=== PATIENT | male | born 1950 | race Caucasian/White ===

== ENCOUNTER 2016-05-15 15:57 | Inpatient (IN) | payer MEDICARE, OTHER ==
--- NOTE | ~2016-05-15 | TH ---
Unit #: [id number] #: [id number] Patient: DYANA PAYNE JR [id number] [address] [place], [place] [address] [id number] I MR#: [id number] NAME: DYANA PAYNE JR : 1950 SEX: M STUDY DATE/TIME: UNIT: C3A U ROOM: [facility] STUDY DESCRIPTION: Nuclear Study Attending Physician: Mateusz Kaur M.D. Primary Care Physician: Rashaun Lawler M.D. CARDIOLOGY REPORT EXAM Lexiscan Cardiolite Stress Test - Nuclear Portion DESCRIPTION Using technetium 99m labeled Cardiolite, rest and stress SPECT images were obtained. Multiple SPECT images were obtained in various views including horizontal and vertical long axis and short axis views of the left ventricle. Images were obtained by gated SPECT method. The patient was administered 11.3 mCi of Cardiolite at rest. The patient was administered 33.9 mCi of Cardiolite after Lexiscan infusion was completed. On the stress images, there is a medium sized area of severe decreased isotope activity inferiorly. The rest images also show a medium sized area of severe decreased isotope activity inferiorly. Comparing rest and stress images, there is suspicion for medium to large inferior wall myocardial infarction with no stress-induced ischemia. The left ventricular ejection fraction is calculated to be 17%. There is severe global hypokinesis seen. The left ventricular cavity is severely dilated, both at rest and post stress. CONCLUSION 1. Suspicion for medium to large inferior wall myocardial infarction. 2. No obvious stress-induced ischemia noted. 3. The left ventricular ejection fraction is calculated to be 17%. 4. There is severe global hypokinesis seen. 5. The left ventricular cavity size is severely dilated, both at rest and post stress. 6. Suspicion for severe dilated ischemic cardiomyopathy with large inferior wall myocardial infarction and no obvious stress-induced ischemia. Dictated by.Aiden Yip TD: 05/17/2016 12:45 JOB #: [id number] Unit #: [id number] #: [id number] Patient: DYANA PAYNE JR CARDIOLOGY REPORT Page 1 of 1 X Annabel Goddard MD <ELECTRONICALLY SIGNED> 08/28/16 [facility] CARDIOLOGY REPORT
--- NOTE | ~2016-05-15 | OR ---
Unit #: [id number] #: [id number] Patient: DYANA PAYNE JR [id number] [address] [id number] [facility]. [place], [place] [address] [id number] Adams MR#: [id number] NAME: DYANA PAYNE JR ROOM: 303 Date of Procedure: 05/21/2016 Admission Date: 05/17/2016 Surgeon: Sukumar Musa M.D. : 1950 Attending Physician: Mateusz Kaur M.D. Primary Care Physician: Rashaun Lawler M.D. OPERATIVE REPORT PROCEDURES PERFORMED 1. Right basilic vein transposition. 2. Placement of tunneled dialysis catheter. INDICATIONS FOR PROCEDURE This is a 65-year-old gentleman with end-stage renal disease, and we were requested by his sales support advisor to place a tunneled dialysis catheter so he can receive immediate dialysis access, as well as placement of a fistula for long-term dialysis access. The patient had preoperative vein mapping that demonstrated that he had adequate right basilic vein for use. He has a left-sided pacemaker already placed. I talked to the patient and his family about the risks and benefits of fistula. The risks include, but are not limited to, bleeding, nerve injury, failure to mature, steal syndrome, need for further procedures. Also, I talked about the risks and benefits of a tunneled dialysis catheter. The risks include, but are not limited to, pneumothorax requiring thoracostomy, line malfunction, line malposition, and line infection. They expressed understanding, and elected to proceed with the operation. [employer]ACHINE TENDER Aiden Nascimento CSA. DESCRIPTION OF PROCEDURE After informed consent was obtained, the patient was brought to the operating room table and placed in supine position. The patient's right arm was evaluated by ultrasound, were identified the basilic vein where appeared to be of adequate size from the elbow up to the axilla. I marked it out preoperatively. I also evaluated the right internal jugular vein, to assess that it was compressible, it did not have thrombus, or was occluded. The right arm, neck, chest were then prepped and draped in standard fashion. At this point, a time-out procedure was performed. I made a skin incision, but the patient felt that despite having a regional block, the patient then underwent induction and intubation with an LMA. I then continued my dissection, making the skin incision over the previously marked site with the ultrasound. I dissected through the subcutaneous tissue and identified the basilic vein. I started dissected along its course. There was a lot of fatty tissue that was adherent to the vein, which was frustrating to dissect freely. I obtained circumferential control of the basilic vein at the elbow, and used a no-touch technique. Unfortunately at the distal aspect, at the elbow, I created an inadvertent venotomy, which initially repaired with 7-0 Prolene Unit #: [id number] #: [id number] Patient: DYANA PAYNE JR in interrupted fashion. However, still seen that the venotomy was greater than 75% circumference of the vein. At this point, I decided to continue my dissection proximal to this vein, and I would just like to have a shorter transposition. I continued my dissection of the basilic vein up the arm. Various nerves were identified and care was taken to not injure them. Several branches of the basilic vein were identified. These were tied off with either 4-0, 3-0, silk ties. I dissected all the way up into the axilla, at its junction with the brachial vein. I then turned my attention towards the dissection of the brachial artery. I was identified along the medial aspect of my distal incision. The brachial veins were identified and mobilized to expose the brachial artery. Circumferential control of the brachial artery was obtained, both proximally and distally. At this point, I then used a silk to measure my path for the transposition. I then marked with a marking pen. I then made a superficial tunnel with a tunneler from the elbow to the axilla. I ligated the distal aspect of the basilic vein, it was clipped after distention with heparinized saline. No significant leakage was noted. I then sutured the basilic vein into the tunneling device and it was pulled through, with proper orientation noted with previously marked lines. I then beveled the basilic vein. An arteriotomy was made in the brachial artery with a #11 blade, extended with Dinh scissors. I then sewed the basilic vein into place with 6-0 Prolene in running fashion. Prior to completion of anastomosis, I flushed and back bled the brachial artery. There was a very good lie of the basilic vein. Upon completion of anastomosis, there was adequate hemostasis. There was a nice strong thrill felt throughout the course of the basilic vein. There was a little bit of tension at its proximal portion, and took down some soft-tissue for a softer lay. The wound bed was then closed with a combination of 2-0 Vicryl, 3-0 Vicryl, and 4-0 Monocryl in subcuticular fashion. Prior to closure, a 15-Slovenian round channel drain was left in the wound bed. This drain was sutured to the skin with 3-0 nylon. I then turned my attention towards the placement of tunneled dialysis catheter. Using ultrasound, I identified the right internal jugular vein. and accessed it with a micro-needle. I advanced a micro-Glidewire, and confirmed my position in the SVC under fluoroscopy. I then changed out my micro-needle for 4-Slovenian micro-sheath catheter using Seldinger technique. A starter wire was then advanced into the IVC. I then exchanged out my 4-Slovenian micro-sheath catheter, and serially dilated the skin tract with 12-Slovenian and then 14-Slovenian dilator. This was all done under fluoroscopy. The peel-away sheath catheter was then advanced into the SVC/RA junction. I then advanced the 23 cm tunneled dialysis catheter through the peel-away sheath catheter, and sheath was removed. I then evaluated my position at the proposed site under fluoroscopy. I made a stab incision with a #11 blade. In the chest incision, I used a tunneling device from the chest to the neck, then dilated the tract, I pulled the catheter back under fluoroscopy until the tip of the catheter was in SVC/RA junction. I then attached the port, and both ports aspirated and flushed easily. Concentrated heparin was instilled into both ports. The catheter was then sutured in place with 3-0 nylon. The neck incision was then closed with 4-0 Vicryl in subcuticular fashion. There was some persistent bleeding and additional 3-0 nylon was placed at the skin. The neck incision was covered with a 4x4 dressing and Tegaderm dressing. A sterile dressing was applied over the over the tunneled dialysis catheter site. Fluoroscopy confirmed that there was no kinking of the catheter at the neck. At the end of the case, all counts were correct. I was present for the entire duration of the procedure. Unit #: [id number] #: [id number] Patient: DYANA PAYNE JR Dictated by.Aiden Delgado TD: 05/22/2016 04:44 JOB #: [id number] OPERATIVE REPORT Page 1 of 1 X X PROCEDURE OPERATIVE NOTE
--- NOTE | ~2016-05-15 | CO ---
Unit #: [id number] #: [id number] Patient: DYANA PAYNE JR [id number] [address] [place], [place] [address] [id number] I MR#: [id number] NAME: DYANA PAYNE JR ROOM: 303 Age: 65 Sex: M Admission Date: 05/17/2016 : 1950 Attending Physician: Mateusz Kaur M.D. Primary Care Physician: Rashaun Lawler M.D. Consultation Date: 05/18/2016 CONSULTATION REPORT REASON FOR CONSULTATION Arteriovenous fistula placement. HISTORY OF PRESENT ILLNESS This patient is a 65-year-old male who presented to the emergency room on 05/15/2016 with complaints of chest pain. He has a past medical history of coronary artery disease with stent placement and AICD placement. He also has additional history of high blood pressure, hyperlipidemia, diabetes, chronic kidney disease stage 3, previous TIAs, afib, diverticulosis. He presented to the ER complaining of chest pain over the past 5 days, was worked up for cardiac workup. He was having shortness of air which is chronic. The patient leads a very sedentary lifestyle, able to only walk from one end to the other. He was supposed to have a prostate resection on Tuesday of this week, so he had been off his Coumadin for a period of 2 weeks, which he currently takes for his atrial fib and he has nausea, vomiting when taking meals and pills. He has had bilateral lower extremity swelling, which he sees Wound Care for due to having blistering and sores on his lower extremities. PAST MEDICAL HISTORY Includes; 1. Coronary artery disease with status post cardiac cath in 07/2013. 2. Ischemic cardiomyopathy with history of AICD placed in 05/2014. 3. Chronic systolic congestive heart failure. 4. History of left bundle branch block. 5. Hypertension. 6. Hyperlipidemia. 7. Diabetes mellitus type 2. 8. Chronic kidney disease stage 3 to 4. 9. History of TIA. 10. Atrial fibrillation. 11. History of anemia. 12. Osteoarthritis. 13. Obesity. 14. Obstructive sleep apnea with CPAP. 15. Scoliosis. 16. Peripheral neuropathy. 17. Acid reflux. 18. Reformed tobacco abuse. ALLERGIES He is allergic to allopurinol, cephalexin, and Actos. HOME MEDICATIONS Unit #: [id number] #: [id number] Patient: DYANA PAYNE JR Amiodarone 100 mg p.o. daily; Coreg 3.125 mg p.o. daily; Cymbalta 60 mg p.o. daily; furosemide 80 mg p.o. b.i.d.; gabapentin 600 mg p.o. t.i.d.; glipizide 10 mg p.o. t.i.d.; omeprazole 20 mg p.o. daily; Onglyza 2.5 mg p.o. daily; potassium chloride 20 mEq p.o. t.i.d.; tramadol 50 mg p.o. b.i.d.; multivitamin one tablet daily; metolazone 5 mg p.o. Tuesday, Tuesday, Tuesday; Flomax 0.4 mg p.o. b.i.d.; ferrous sulfate 325 mg p.o. daily; finasteride 5 mg p.o. daily; Lipitor 40 mg p.o. daily; Coumadin 3 mg p.o. daily. SOCIAL HISTORY He was with his in the home. He is a reformed smoker. He quit smoking in 1986. No use of alcohol or illicit drug use. He does ambulate with a walker at home for balance issues. He does have a history of falling on a regular basis, says may be 2 to 3 times a week which requires 2 to 3 person assist due to weakness. He has no significant family history for coronary artery disease, kidney disease, or vascular complication. REVIEW OF SYSTEMS CONSTITUTIONAL: No fever, chills, or sweats. No recent visual problems. EAR, NOSE, MOUTH, and THROAT: No ear pain, nasal congestion, or sore throat. RESPIRATORY: No shortness of breath or cough. CARDIOVASCULAR: Denies chest pain, palpitations, syncope. GASTROINTESTINAL: Verbalizes positive nausea while taking medications, negative for vomiting, negative diarrhea. GENITOURINARY: No hematuria. HEMATOLOGIC: Negative for bruising, no swollen lymph glands. ENDOCRINE: No excessive thirst or excessive hunger. MUSCULOSKELETAL: Denies back pain, neck pain, joint pain, muscle pain. Positive for decreased range of motion due to sedentary lifestyle. INTEGUMENTARY: Bilateral lower extremity swelling with blistering fluid-filled blisters on his lower portion of his legs bilaterally. NEUROLOGIC: Alert and oriented x3. PSYCHIATRIC: No anxiety, depression, or suicidal thoughts or ideations. PHYSICAL EXAMINATION VITAL SIGNS: Temperature 97.4, pulse 94, respirations 18, and blood pressure 104/68. GENERAL APPEARANCE: Well-developed, well-nourished, obese, in no acute distress. HEAD, EARS, EYES, NOSE, and THROAT: Normocephalic. Pupils equal, round, and reactive to light. NECK: Supple, nontender without lymphadenopathy, masses or thyromegaly. No carotid bruits noted. CARDIAC: Regular rate and rhythm. No murmurs. No peripheral edema, cyanosis, or pallor. LUNGS: Bilateral lungs, clear to auscultation. ABDOMEN: Positive for bowel sounds. Soft, nontender. No distention. No masses or hepatomegaly. Rotund. MUSCULOSKELETAL: Moves all extremities, full range of motion. Normal muscular development. EXTREMITIES: Upper extremities; no deformity noted. No edema. Right, 18-gauge Angiocath, saline locked in left forearm. Lower extremities, no deformity noted. Positive for bilateral lower extremity edema with pitting in feet and ankles. Bilateral calves, medial blisters filled with serous fluid, wrapped with dressing and Coban. VASCULAR: Palpable radial pulses bilaterally. Femoral pulses palpable Unit #: [id number] #: [id number] Patient: DYANA PAYNE JR bilaterally. Palpable pedal pulses bilaterally. INTEGUMENTARY: Warm and dry. Bilateral lower extremity blistering with open wounds to the right lower extremity. No hemosiderin deposition. NEUROLOGIC: Cranial nerves II through XII grossly intact. Normal strength and sensation bilaterally. PSYCHIATRIC: Oriented to person, place, and time. Demonstrates good judgment and reason. DIAGNOSTIC STUDIES IMAGING STUDIES: Bilateral upper extremity vein mapping was performed today in the hospital. Results pending. We will discuss with Dr. Burr one day have been reported. LABORATORY RESULTS: BUN 96, creatinine 2.3, eGFR 28.7, sodium 137, potassium 4.9, chloride 97, CO2 of 30, AST 66, ALT 45, alkaline phosphatase 60, PT 14.7, INR 1.4, PTT 30.9. White blood cell count 4.53, hemoglobin 12.3, hematocrit 38.9, and platelets 112. ASSESSMENT Arteriovenous fistula creation, chronic kidney disease stage 3. PLAN We will discuss with Dr. Burr and reviewed the vein mapping results. From vascular standpoint, AV fistula creation is okay to do on an outpatient basis, but [facility] will be available if needed to place while the patient is inpatient. Any questions or concerns, please feel free to contact [facility] at #[phone]. Thank you for allowing us to participate in this patient's care. Dictated by... Anastacio Burr M.D. SA/brandon TD: 05/19/2016 14:41 JOB #: [id number] CONSULTATION REPORT Page 1 of 1 X Anastacio Burr MD X CONSULTATION REPORT
--- NOTE | ~2016-05-15 | CO ---
Unit #: [id number] #: [id number] Patient: DYANA FIELDS JR [id number] [address] [place], [place] [address] [id number] I MR#: [id number] NAME: DYANA FIELDS JR ROOM: 303 Age: 65 Sex: M Admission Date: 05/15/2016 : 1950 Attending Physician: Mateusz Kaur M.D. Primary Care Physician: Rashaun Lawler M.D. Consultation Date: 05/15/2016 CONSULTATION REPORT REASON FOR CONSULTATION Renal insufficiency. Thank you very much for asking us to see this patient in consultation. HISTORY OF PRESENT ILLNESS Mr. Dyana Fields is 65-year-old male with history of chronic kidney disease, late stage 3, early stage 4. He is followed by Dr. Tito Sheppard in our office with a history of severe heart disease, cardiomyopathy, decreased EF around 20%, atrial fib, status post stents, AICD, pacemaker, etc., who presented to the hospital again with some epigastric pain and chest pain. Does have occasional nausea and vomiting with medications, although he states he has taken all of his medications. He denies any fevers or chills. Denies any nonsteroidal use. Apparently, he is not following fluid restriction as well as he should. He runs a creatinine around 2.0 with a high BUN related to his cardiac status. He denies any skin rashes. He does have chronic swelling in his lower legs. He has intermittent incontinence. PAST MEDICAL HISTORY History of atherosclerotic coronary artery disease, status post stents; history of atrial fib; again history of cardiomyopathy with decreased EF; history of AICD, status post pacemaker; history of pulmonary hypertension; history of hypertension; status post left knee; history of anemia; history of BPH; history of TIA; history of obstructive sleep apnea, uses his CPAP, he states at night; history of hyperlipidemia; history of skin cancer; status post cholecystectomy. ALLERGIES Include Keflex. SOCIAL HISTORY Previous smoker, none now. No alcohol. MEDICATIONS Include amiodarone 100 mg a day; Coreg 3.125 mg b.i.d.; Ultram p.r.n. for pain; Flomax 0.4 mg b.i.d.; Lasix 80 mg b.i.d.; metolazone 5 mg every Tuesday, Tuesday, Tuesday; Proscar daily; iron pill daily; Protonix daily; Cymbalta daily; Lipitor daily; KCl 20 mEq t.i.d.; Glucotrol 10 mg t.i.d.; Neurontin 600 mg t.i.d. FAMILY HISTORY Noncontributory. Unit #: [id number] #: [id number] Patient: DYANA FIELDS JR REVIEW OF SYSTEMS As mentioned in HPI. He does state he has shortness of breath on exertion and at rest. Rest of it again as mentioned above. He denies any hemoptysis. He denies any severe headaches, dizziness, visual problems, sinus problems. Currently, no sore throat. PHYSICAL EXAMINATION GENERAL: He is alert and oriented. VITAL SIGNS: Temperature 98.5, pulse 79 to 93, blood pressure 95 to 116 over 56 to 90. HEENT: Normocephalic and atraumatic. Pupils are equal, round, and reactive to light. Extraocular muscles are intact. Hearing appears to be normal. Mouth is clear. No erythema. No exudate. NECK: Supple. No JVD. CARDIAC: He has an irregular rhythm without a rub. No S3 or S4. LUNGS: Sound fairly clear bilaterally. No wheezes, rhonchi, or rales. ABDOMEN: Obese. Bowel sounds positive. Nontender. Soft. No masses felt. No hepato-organomegaly noted. EXTREMITIES: He does have some positive body edema. He has positive lower extremity swelling. He has a wrap on his left ankle and lower leg. NEUROLOGIC: Appears to be intact motor and sensory grossly. : Deferred. DIAGNOSTIC STUDIES LABORATORY RESULTS: Shows sodium of 140, potassium 3.9, chloride is 99, bicarb is 32, BUN of 102, creatinine 2.0, glucose 111, calcium is 9.5, albumin is 3.2. INR is 1.4. Hemoglobin is 12.3, white count 6900, platelets 111,000. SPEP in 2014 was negative. IMAGING STUDIES: Chest x-ray here showed cardiomegaly, but no acute failure. ASSESSMENT/PLAN 1. Chronic kidney disease, late stage 3, early stage 4. Certainly, the patient does appear to have a prerenal type picture most likely from poor cardiac function. I am afraid if I increase his diuretics more, I will cause him to be more significant prerenal and symptomatic and if I lower his diuretics, I think he will get more fluid overload and potential congestive heart failure. I think I am going to leave his current diuretics to where they are. Follow his output. Continue low-sodium diet, fluid restriction, etc. He is on a PPI for now. Although, he has history of anemia in the past, could consider changing that to Pepcid, although now his platelets are little bit low, so for now we will keep him on his PPI and we will discuss this in followup for the next several days. We will check labs in the morning. We will continue to follow. 2. Cardiac issues as mentioned above. 3. Chest pain/epigastric discomfort, questionable GI related again on Protonix still. 4. History of benign prostatic hypertrophy with some intermittent urinary incontinence. We will continue his medicines for now. 5. Obesity. 6. Obstructive sleep apnea. Dictated by.Braulio Martinez M.D. MARYSOL/brandon Unit #: [id number] #: [id number] Patient: FIELDS DYANA Salas TD: 05/17/2016 01:35 JOB #: [id number] CONSULTATION REPORT Page 1 of 1 X Francisco Martinez MD X CONSULTATION REPORT
--- NOTE | ~2016-05-15 | CR72 ---
[facility] A Service of [facility] RADIOLOGY TEXT RESULTS PATIENT: DYANA PAYNE JR LOCATION: [facility] : [birth year] UNIT #: [id number] AGE: [address]: Mateusz Kaur MD SEX: M ORDER DR: [id number] [facility] [address] [facility]. [place], [place] [address] [id number] I MR#: [id number] Acc #: [id number] NAME: DYANA PAYNE : 1950 SEX: M STUDY DATE/TIME: 05/21/2016 5:37 UNIT: [address] ROOM: [facility] STUDY DESCRIPTION: CR Chest Single View Portable Attending Physician: Mateusz Kaur M.D. Ordering Physician: Tito Phipps M.D. Primary Care Physician: Rashaun Lawler M.D. MEDICAL IMAGING REPORT This report is preliminary unless electronic signature is present EXAM AP portable chest Date: 05/21/2016 05:37 HISTORY Chest pain, congestion. Postop. Symptoms of a present for 1 week. Hypertension. COMPARISON PA and lateral chest from 05/18/2016. FINDINGS Stable moderate generalized cardiomediastinal enlargement. Left chest wall pacemaker/defibrillator leads appear unchanged in position. No pneumothorax is visible. Lungs appear free of consolidation. Previously described small bilateral pleural effusions are not evident today. IMPRESSION 1. Stable moderate generalized cardiomediastinal enlargement. No acute chest findings. 2. Previously described bilateral pleural effusions appear resolved. Dictated by... Danyell Harrington M.D. THIS IS AN ELECTRONICALLY VERIFIED REPORT Danyell Harrington M.D. at 05/24/2016 8:36 AM ERIN/mg TD: 05/21/2016 09:24 JOB #: [id number] [facility] A Service of [facility] RADIOLOGY TEXT RESULTS PATIENT: DYANA PAYNE JR LOCATION: [facility] : [birth year] UNIT #: [id number] AGE: [address]: Mateusz Kaur MD SEX: M ORDER DR: MEDICAL IMAGING REPORT Page 1 of 1 COPY
--- NOTE | ~2016-05-15 | HP ---
Unit #: [id number] #: [id number] Patient: DYANA PAYNE JR [id number] [facility] [address]. [place], [place] [address] [id number] I MR#: [id number] NAME: DYANA PAYNE ROOM: 303 Age: 65 Sex: M Admission Date: 05/15/2016 : 1950 Attending Physician: Mateusz Kaur M.D. Primary Care Physician: Rashaun Lawler M.D. HISTORY AND PHYSICAL HISTORY OF PRESENT ILLNESS This is a 65-year-old white male well known to our group with a past medical history of coronary artery disease, status post cardiac catheterization August 06, 2013 which revealed disease in the LAD and distal right coronary artery. The patient had drug-eluting stents placed in the proximal and mid LAD. The right coronary artery was not dilated. Ejection fraction was low at the time at 15%. A 2D echocardiogram was completed in July 2013 and revealed a continued low ejection fraction of 20% to 25%. There was some kzhr-kf-ubqgfeib pulmonary hypertension and lyxm-pr-fxvfmopz mitral regurgitation as well as mild tricuspid regurgitation. An AICD was placed subsequently in May 2014. Additional past medical history includes hypertension, hyperlipidemia, diabetes mellitus, chronic kidney disease, previous TIA, paroxysmal atrial fibrillation, now on Coumadin and anemia. Patient was admitted to [facility] in July 2015 for an acute HGI bleed while he was on Xarelto. He underwent an EGD and a colonoscopy which revealed mild gastritis, diverticulosis and small internal hemorrhoids and a colon polyp. He is now on Coumadin and no longer takes Xarelto. He presented to the emergency department with complaints of chest pain. He states that over the last five days he has had intermittent episodes of chest pain that is located in the substernal to epigastric region. The pain occurs after meals. He feels like there is food that is "stuck." The pain lasts for several minutes. There is no radiation to the neck, jaw, shoulders are arms. The pain is described as tightness. He denies any dizziness or syncope. He has had some occasional palpitations. He states he is chronically short of breath and does not exercise. He is only able to walk from one room to the other and is very sedentary. He has been compliant with all his medications but states he has not been taking his Coumadin this week. He is supposed to have a prostate resection on Tuesday of this week. Additional symptoms include some nausea and vomiting after taking meals or pills. He also has some swelling in his right lower extremity which he states has been ongoing for some time. He does have a wound on his left lower extremity which is currently dressed and wrapped. PAST MEDICAL HISTORY 1. Previous admission to [facility] July 2015, for acute GI bleed while on Xarelto. Status post EGD and colonoscopy which revealed mild gastritis, diverticulosis, small internal hemorrhoids and colon polyp. Xarelto discontinued. Now on Coumadin. 2. Coronary artery disease, status post cardiac catheterization on August 06, 2013 which revealed left main normal. First obtuse marginal 30%. Unit #: [id number] #: [id number] Patient: DYANA PAYNE JR LAD distal to the first diagonal 90%, then 80% in the distal LAD. Distal right coronary artery 60% to 70%. Ejection fraction 15%. Status post PCI and drug-eluting stent in the proximal LAD and mid LAD. Right coronary artery not dilated. 3. Two-D echocardiogram July 2013 revealed a left ventricular ejection fraction of 20% to 25%. Mild to moderate mitral regurgitation. Mild tricuspid regurgitation, aortic regurgitation, pulmonic regurgitation. Right ventricular systolic pressure 30 to 40 mmHg. 4. Ischemic cardiomyopathy with history of AICD May 2014. 5. Chronic systolic congestive heart failure. 6. History of left bundle-branch block. 7. Hypertension. 8. Hyperlipidemia. 9. Diabetes mellitus type 2. 10. Chronic kidney disease stage III/IV. 11. History of TIA. 12. Paroxysmal atrial fibrillation, now paced. 13. History of anemia. 14. Osteoarthritis. 15. Obesity. 16. Obstructive sleep apnea, on CPAP. 17. Scoliosis, spinal stenosis and bulging discs. 18. Peripheral neuropathy. 19. BPH. 20. GERD. 21. Reformed tobacco abuse. PAST SURGICAL HISTORY 1. Cardiac catheterization, PCI and stent July 2013. 2. Medtronic AICD May 2014. 3. Cholecystectomy in 1986. 4. Left knee open repair. 5. Excision of basal cell carcinoma from the nose in 2014. 6. Vasectomy. 7. Back surgery x2 January 2013. 8. Ventral hernia repair. 9. Appendectomy. 10. EGD and colonoscopy. 11. Left total knee replacement November 2015. HOME MEDICATIONS 1. Amiodarone 100 mg p.o. daily. 2. Coreg 3.125 mg p.o. daily. 3. Cymbalta 60 mg p.o. daily. 4. Furosemide 80 mg p.o. b.i.d. 5. Gabapentin 600 mg p.o. t.i.d. 6. Glipizide 10 mg p.o. t.i.d. 7. Omeprazole 20 mg p.o. daily. 8. Onglyza 2.5 mg p.o. daily. 9. Potassium chloride 20 mEq p.o. t.i.d. 10. Tramadol 50 mg p.o. b.i.d. 11. Multivitamin one tablet p.o. daily. 12. Metolazone 5 mg p.o. Tuesday, Tuesday, Tuesday. 13. Flomax 0.4 mg p.o. b.i.d. 14. Ferrous sulfate 325 mg p.o. daily. 15. Finasteride 5 mg p.o. daily. 16. Lipitor 40 mg p.o. daily. 17. Coumadin 3 mg p.o. q.p.m. Unit #: [id number] #: [id number] Patient: PAYNE DYANA RICKS ALLERGIES Allopurinol, cephalexin and adverse reaction to Actos. SOCIAL HISTORY The patient lives in a private residence. He is a reformed smoker. He quit smoking in 1986. There are no reports of alcohol or illicit drug use. The patient ambulates with a cane or walker. FAMILY HISTORY Negative for coronary artery disease. REVIEW OF SYSTEMS A 10-point review of systems is negative except for details noted above in the HPI. PHYSICAL EXAMINATION VITAL SIGNS: Temperature 97.7. Pulse 79. Blood pressure 104/70. CONSTITUTIONAL: This is a 65-year-old white male in no acute distress. SKIN: Skin is warm and dry. NECK: Neck is supple. No jugular vein distention. No hepatojugular reflux. Normal carotid upstrokes. No carotid bruits auscultated. HEART: S1, S2. Regular rate and rhythm. No murmurs, rubs or gallops. LUNGS: Bilateral breath sounds have good air entry throughout all lung castillo. Respirations even and unlabored. No rales, rhonchi or wheezes. ABDOMEN: Abdomen is soft, nontender and nondistended. Obese. Positive bowel sounds auscultated x4 quadrants. No ascites noted. EXTREMITIES: Right lower extremity has +3 pitting edema. Left lower extremity has +1 pitting edema. DP and PT pulses 1+. Capillary refill is less than two seconds. DIAGNOSTIC STUDIES LABORATORY: White blood cell count 6.9, hemoglobin 12.3, hematocrit 38.9, platelets 111, sodium 140, potassium 3.9, chloride 99, CO2 32, BUN 98, creatinine 2.0, previous creatinine 1.9 to 2.3, glucose 111, albumin 3.2, total protein 7.1, AST 14, ALT 16, alkaline phosphatase 66, CK 17, troponin 0.04 and 0.04, INR 1.4. IMAGING: Chest x-ray reveals stable cardiomegaly. No evidence of pulmonary edema. CARDIOVASCULAR: EKG reveals a paced rhythm. Prolonged QTc of 561 msec. IMPRESSION 1. Atypical chest pain. 2. Epigastric pain. 3. Coronary artery disease with history of percutaneous coronary intervention and stent in the left anterior descending in July 2013. Right coronary artery not dilated. 4. Ischemic cardiomyopathy with history of AICD. 5. Chronic systolic congestive heart failure. 6. Chronic kidney disease stage III/IV. 7. Right lower extremity edema, rule out deep venous thrombosis. 8. Left lower extremity wound with history of methicillin-resistant Staphylococcus aureus. 9. Hypertension. 10. Hyperlipidemia. 11. Diabetes mellitus type 2. Unit #: [id number] #: [id number] Patient: DYANA PAYNE JR 12. History of paroxysmal atrial fibrillation, now paced. 13. Benign prostatic hypertrophy. Planned for prostate resection on Saturday, May 21, 2016 PLAN 1. Patient presented to the hospital with complaints of chest pain which appears more epigastric and related to meals. 2. Cardiac enzymes are negative and EKG is not acute. 3. Dr. Lozano will be consulted with gastroenterology for further evaluation. 4. The patient is known to have coronary artery disease and underwent cardiac catheterization 2013 which revealed an LAD and right coronary artery stenosis. The LAD underwent stent placement but the RCA was not dilated. 5. The patient will be scheduled for a Lexiscan Cardiolite stress test to rule out inferior wall ischemia. 6. A uric acid, BMP and BNP will be ordered in a.m. 7. A TSH and fasting lipid profile will also be assessed. 8. The patient will be placed on renal dosing of Lovenox. His Coumadin will be held as he is supposed to undergo a prostate resection later this week. 9. He will be continued on diuretics as dosed as well as beta jelena, statin and amiodarone. 10. Dr. Martinez with nephrology will be consulted due to chronic kidney disease. 11. Wound Care will be consulted for a left lower extremity wound. 12. A right lower extremity Doppler will be ordered due asymmetrical swelling. 13. Further recommendations are pending hospital course. Dictated by Radha Corcoran APRN for Aiden Garcia/artur TD: 05/16/2016 13:27 JOB #: [id number] HISTORY AND PHYSICAL Page 1 of 1 X X HISTORY AND PHYSICAL
--- NOTE | ~2016-05-15 | CR71 ---
[facility] A Service of [facility] & [facility] / [facility] RADIOLOGY TEXT RESULTS PATIENT: DYANA PAYNE JR LOCATION: [facility] 303- : 50 UNIT #: [id number] AGE: [address]: Mateusz Kaur MD SEX: M ORDER DR: [id number] [facility] [address] [place], [place] [address] [id number] I MR#: [id number] Acc #: [id number] NAME: DYANA PAYNE JR : 1950 SEX: M STUDY DATE/TIME: 05/21/2016 16:37 UNIT: [address] ROOM: [facility] STUDY DESCRIPTION: CR Chest Single View Attending Physician: Mateusz Kaur M.D. Ordering Physician: Sukumar Musa M.D. Primary Care Physician: Rashaun Lawler M.D. MEDICAL IMAGING REPORT This report is preliminary unless electronic signature is present EXAM AP portable chest 05/21/2016 COMPARISON 05/21/2016. HISTORY Line placement. FINDINGS An AP view is obtained. There is a new right-sided dialysis catheter in place with the tip at the cavoatrial junction. A transvenous pacing device is in place. Cardiac size is enlarged. Lungs show an increase in passive congestion with no pneumothorax. CONCLUSION New right-sided dialysis catheter tip at the cavoatrial junction. Marked increase in passive congestion and edema. Dictated by... Rambo Macdonald M.D. THIS IS AN ELECTRONICALLY VERIFIED REPORT Rambo Macdonald M.D. at 05/24/2016 7:20 AM YARED/delvin TD: 05/22/2016 06:55 JOB #: [id number] MEDICAL IMAGING REPORT Page 1 of 1 COPY
--- NOTE | ~2016-05-15 | EKG ---
PATIENT: DYANA PAYNE UNIT #: [id number] Ventricular Rate: 93 BPM Atrial Rate: 93 BPM P-R Interval: 140 ms QRS Duration: 178 ms Q-T Interval: 452 ms QTC Calculation(Bezet): 561 ms P Blackwell: 44 degrees Calculated R Blackwell: -108 degrees Calculated T Blackwell: 75 degrees Diagnosis Line: Atrial-sensed ventricular-paced rhythm Diagnosis Line: Biventricular pacemaker detected Diagnosis Line: Premature ventricular complexes Diagnosis Line: Abnormal ECG Diagnosis Line: When compared with ECG of 28-JUL-2015 16:49, Diagnosis Line: Vent. rate has increased BY 3 BPM Diagnosis Line: Confirmed by JAE NULL MD ([id number]) on 05/16/2016 Diagnosis Line: 4:35:52 PM INTERPRETING MD: TENNILLE PACE
--- NOTE | ~2016-05-15 | ST ---
Unit #: [id number] #: [id number] Patient: DYANA PAYNE JR [id number] [address] [place], [place] [address] [id number] I MR#: [id number] NAME: DYANA PAYNE JR : 1950 SEX: M STUDY DATE/TIME: 05/17/2016 UNIT: [id number] ROOM: 303 STUDY DESCRIPTION: Stress Test Attending Physician: Mateusz Kaur M.D. Primary Care Physician: Rashaun Lawler M.D. CARDIOLOGY REPORT REASON FOR EXAM Chest pain. DESCRIPTION Baseline EKG shows sinus rhythm with frequent PVCs, left axis deviation, nonspecific intraventricular block. Also, ventricularly paced beats are noted, rate of 97 beats per minute. 0.4 mg of Lexiscan was injected per protocol followed by Cardiolite. During the testing period, the patient did complain of shortness of breath, nausea, but denied any complaints of chest pain. There were no ST segment changes noted during the testing. The patient did have frequent PVCs noted during the test. The test was stopped secondary to protocol completion. IMPRESSION 1. Nondiagnostic EKG portion of Lexiscan Cardiolite. 2. No ST segment changes noted suggestive of ischemia. 3. Positive nausea, headache and shortness of breath. Denied any complaints of chest pain. 4. Patient did have frequent PVCs as well as bigeminy during the testing. 5. Please correlate with nuclear imaging. Please note - the patient did have vomiting several minutes post procedure. The floor was called and he was given 4 mg of IV Zofran, which attained good results. Continued to deny any chest pain. At present, he is comfortable. Dictated by... Pati Barr A.P.R.N. for Aiden Correa/df TD: 05/17/2016 11:33 JOB #: [id number] Unit #: [id number] #: [id number] Patient: DYANA PAYNE JR CARDIOLOGY REPORT Page 1 of 1 X Pati Barr APRN CARDIOLOGY REPORT
--- NOTE | ~2016-05-15 | US5 ---
[facility] A Service of [facility] & [facility] / [facility] RADIOLOGY TEXT RESULTS PATIENT: DYANA PAYNE JR LOCATION: [facility] 303- : 50 UNIT #: [id number] AGE: [address]: Mateusz Kaur MD SEX: M ORDER DR: [id number] [facility] [address] [place], [place] [address] [id number] I MR#: [id number] Acc #: [id number] NAME: DYANA PAYNE JR : 1950 SEX: M STUDY DATE/TIME: 05/18/2016 8:24 UNIT: [address] ROOM: [facility] STUDY DESCRIPTION: US Abdominal Complete Attending Physician: Mateusz Kaur M.D. Ordering Physician: Reji Lozano M.D. Primary Care Physician: Rashaun Lawler M.D. MEDICAL IMAGING REPORT This report is preliminary unless electronic signature is present EXAM Ultrasound of the abdomen INDICATION Abnormal elevated liver function tests for 3 days. TECHNIQUE Villagran-scale, color Doppler and spectral Doppler waveform analysis was performed through the patient's abdomen. FINDINGS Visualized portions of the pancreas appear unremarkable. Proximal abdominal aorta measures within normal size limits. The mid and distal abdominal aorta cannot be assessed on this study but were of normal size on prior study from March 23, 2016. Liver does appear enlarged measuring up to 20.5 cm in sagittal dimensions. Main portal vein is patent with hepatopetal flow. There is a 2.7 x 2.7 cm hyperechoic lesion within the right lobe of the liver. This has been present on exams dating back to January 2014. I may reflect a lipoma but is benign. Spleen is also enlarged measuring up to 17 cm in craniocaudal dimensions. Kidneys are normal in appearance with no solid or cystic renal masses seen and no hydronephrosis identified. IMPRESSION 1. Hepatosplenomegaly. 2. Hepatic lipoma. This has been present on exams dating back to January 2014 and is unchanged. Dictated by... Taylor Tiwari M.D. THIS IS AN ELECTRONICALLY VERIFIED REPORT [facility] A Service of [facility] & [facility] / [facility] RADIOLOGY TEXT RESULTS PATIENT: DYANA PAYNE JR LOCATION: [facility] 303-01 : [birth year] UNIT #: [id number] AGE: [address]: Mateusz Kaur MD SEX: M ORDER DR: Taylor Tiwari M.D. at 05/19/2016 12:21 PM AFF/delvin TD: 05/18/2016 12:06 JOB #: [id number] MEDICAL IMAGING REPORT Page 1 of 1 COPY
--- NOTE | ~2016-05-15 | CR63 ---
[facility] A Service of [facility] & [facility] RADIOLOGY TEXT RESULTS PATIENT: DYANA PAYNE JR LOCATION: [facility] 303-01 : 50 UNIT #: [id number] AGE: [address]: Mateusz Kaur MD SEX: M ORDER DR: [id number] [facility] [address] [place], [place] [address] [id number] I MR#: [id number] Acc #: [id number] NAME: DYANA PAYNE JR : 1950 SEX: M STUDY DATE/TIME: 05/18/2016 13:10 UNIT: [address] ROOM: [facility] STUDY DESCRIPTION: CR Chest 2 View Attending Physician: Mateusz Kaur M.D. Ordering Physician: Tito Sheppard Jr., M.D. Primary Care Physician: Rashaun Lawler M.D. MEDICAL IMAGING REPORT This report is preliminary unless electronic signature is present EXAM PA and lateral chest, 05/18/2016 COMPARISON 05/15/2016 HSITORY SUPPLIED Shortness of breath, chest congestion and leg swelling for 1 week. FINDINGS A PA and lateral view is obtained showing cardiac enlargement. There are postop changes of biventricular pacemaker placement. The vascular markings in the chest appear normal. The lateral film is underpenetrated. Question is raised of small bilateral effusions. CONCLUSION 1. Cardiomegaly. Postop changes of biventricular pacemaker placement. 2. Small bilateral pleural effusions. Dictated by... Rambo Macdonald M.D. THIS IS AN ELECTRONICALLY VERIFIED REPORT Rambo Macdonald M.D. at 05/20/2016 2:19 PM YARED/david TD: 05/18/2016 22:33 JOB #: [id number] MEDICAL IMAGING REPORT Page 1 of 1 COPY
--- NOTE | ~2016-05-15 | DS ---
Unit #: [id number] #: [id number] Patient: DYANA FIELDS JR [id number] [address] [place], [place] [address] [id number] I MR#: [id number] NAME: DYANA FIELDS JR ROOM: 303 Age: 65 Sex: M Admission Date: 05/17/2016 : 1950 Discharge Date: 05/25/2016 Attending Physician: Mateusz Kaur M.D. Primary Care Physician: Rashaun Lawler M.D. DISCHARGE SUMMARY ADMITTING DIAGNOSES 1. Chest pain. 2. Coronary artery disease with history of stent in 2013. 3. Ischemic cardiomyopathy with a history of atrial implantable cardioverter defibrillator. 4. Chronic systolic congestive heart failure. 5. Chronic kidney disease. 6. Right lower extremity edema. 7. MRSA wound of the left lower extremity. 8. Hypertension/hyperlipidemia/diabetes. 9. History of paroxysmal atrial fibrillation. 10. BPH with prostate resection pending. DISCHARGE DIAGNOSES 1. Atypical chest pain, resolved. 2. Abnormal LFTs, likely secondary to MORRIS versus congestion. 3. Endstage renal disease on hemodialysis, which is new. 4. Ischemic cardiomyopathy with a history of atrial implantable cardioverter defibrillator. 5. Coronary artery disease with stent in 2013. 6. Nonsustained ventricular tachycardia, resolved after potassium and magnesium replacement. 7. Paroxysmal atrial fibrillation. 8. Acute on chronic systolic congestive heart failure with ejection fraction of 15%. 9. Constipation. DIAGNOSTIC DATA IMAGING: Chest x-ray on 05/21/2016 shows stable moderate generalized cardiomediastinal enlargement. No acute chest findings. Previously described bilateral pleural effusions, resolved. Line placement chest x-ray shows a dialysis catheter tip in that stable atrial junction. Right basilic vein transposition and placement of tunnelled dialysis catheter was completed. On 05/18/2016 a chest x-ray showed cardiomegaly with biventricular pacemaker placement. Small bilateral pleural effusions. Bilateral upper extremity venous mapping was completed and showed positive superficial venous thrombus of the right and left cephalic vein at the antecubital fossa. The right cephalic vein marginal for use as a hemodialysis access. The left cephalic vein is adequate for use as a hemodialysis access. The right basilic vein is adequate for use as a hemodialysis access. Ultrasound of the abdomen shows hepatosplenomegaly. Hepatic lipoma. Unit #: [id number] #: [id number] Patient: DYANA FIELDS JR since 01/2014. HOSPITAL COURSE Mr. Fields is a 65-year-old male who is well known to Dr. Kaur. He was admitted with some chest pains. This was thought to be atypical and mostly epigastric pain. Dr. Lozano was then consulted for GI following. He did complete a Lexiscan Cardiolite stress test, which showed old large infarct with ejection fraction of 17%, left ventricle dilated with no ischemic changes. LACI and ARB were discontinued due to renal insufficiency. Renal was consulted due to chronic renal failure. Protonix was started 40 mg IV b.i.d. during hospitalization. Renal felt as though on 05/18/2016 that he would eventually need dialysis for cardiorenal syndrome and vascular was asked to place the fistula as noted above. On 05/18/2016 he was started on a dobutamine drip for worsening renal function. He remained paced throughout his hospitalization with no difficulties with elevated heart rates. He did complete an EGD also during hospitalization and no report is available at this time. Upon further review, it was noted that he did not have an EGD as it was thought that his elevated LFTs were thought to be from congestion. Renal continued to schedule dialysis and manage that. He had done well with that and continued to progress. Knowing that he would need rehab, care management has been working with rehab placement and today we have a bed available. He does have a complaint of abdominal pain and constipation as it has been several days since his last bowel movement. He does have some Senokot and some lactulose ordered for today. He will follow with dialysis on Tuesdays, and Saturdays and that has been arranged at outpatient with [facility] per renal. Renal is noting in the documentation that his prognosis is guarded. He has been weaned off of Dobutrex, which he required for several days. His Coumadin has been restarted and we will plan to follow his INR and adjust his Coumadin as needed over the next several days as well. We have restarted his Coreg and his lisinopril at low dose with parameters. He seems to be tolerating well. Yesterday he had a little bit of mental confusion/fogginess, which has cleared today. That seems to be multifactorial, including medications as well as sleep deprivation. Physical therapy has been evaluating and treating while here. He will continue to rehab for further physical rehabilitation. His electrolytes have been followed and replaced as needed during his hospitalization. Currently today he is not complaining of any shortness of breath and only of the abdominal pain with the constipation. He does have some right arm pain at the site of the fistula with some bruising there. This is requiring elevation. He also has had a noted leg wound and he has been treated with some clindamycin four times daily for this leg wound. At this point he will require elevation of the right arm with limited movement due to the new fistula. He will continue with treatment of the leg wound. He will be discharged rehab after he completes hemodialysis today. Blood pressure 113/72, pulse 84, respiratory rate 16, temperature 98.5, 254 pounds. He is paced on the monitor with a saturation of 96% on room air. DIAGNOSTIC DATA LABORATORY: Hepatitis B surface antibody less than 5. PT 12, INR 1.1. Sodium 130, potassium 3.7, glucose 132, BUN 61, creatinine 2.4, phosphorus 3.1, hemoglobin 10.8, hematocrit 34.5, platelets 134, white blood cell count 11.4. AST 51, ALT 82. BNP 524 on 05/19/2016. Urine culture shows no growth in 48 hours. DISCHARGE MEDICATIONS 1. Flomax 0.4 mg b.i.d. Unit #: [id number] #: [id number] Patient: KERRY ,DYANA Salas 2. Amiodarone 100 mg daily. 3. Clindamycin 150 p.o. q.i.d. 4. Warfarin 3 mg daily. 5. Gabapentin 600 mg t.i.d. 6. Cymbalta 60 mg daily. 7. Coreg 3.125 mg b.i.d. Hold for systolic blood pressure less than 100. 8. Onglyza 2.5 mg daily. 9. Lasix 80 mg b.i.d. 10. Lipitor 40 mg daily. 11. Lisinopril 2.5 mg daily. 12. NovoLog medium sliding scale, morning and evening Accu-Cheks. 13. Proscar 5 mg daily. 14. Multivitamin daily. 15. Ultram 50 mg b.i.d. p.r.n. 16. Omeprazole 20 mg daily. 17. Tums 500 mg q.2 h. p.r.n. indigestion. 18. Glipizide 10 mg t.i.d. 19. Senokot S p.o. b.i.d. p.r.n. DIET Low-sodium, diabetic, healthy-heart diet. ACTIVITY Per rehab protocol. FOLLOWUP 1. Follow up with Dr. Kaur in six weeks. 2. Follow up with Dr. Lozano in six weeks. 3. Follow up with Dr. Sheppard with renal as directed. 4. He will have hemodialysis on Tuesdays, and Saturdays. 5. He will need a PT/INR on 05/28/2016, with Coumadin adjustments as needed. 6. He will also need to follow up with Dr. Phipps with vascular surgery in the next four weeks as well. This dictation, discharge and planning were greater than 30 minutes. I have discussed this discharge with Dr. Goddard prior to completion. He will be discharged to rehab after completion of hemodialysis today. Of note, clarification for the left lower extremity wound recommendations from wound care include the followin. Cleanse bilateral lower extremities with foam cleanser with each dressing change. 2. Apply sock green top lotion to the right lower extremity every 72 hours. 3. Apply Hydrofera blue ready to open wound on lateral left lower extremity every 72 hours. 4. Cover with Kerlix to secure and protect dressing. 5. Apply Hydrofera blue ready cut to fit the wound on the medial aspect of the left lower extremity every week. 6. Apply Coban Light to compression wrap to left lower extremity every week. Dictated by... Tadeo PantojaPGisela for Annabel Goddard M.D. Unit #: [id number] #: [id number] Patient: DYANA FIELDS JR Maritza HOLT/maxim TD: 05/25/2016 10:44 JOB #: [id number] DISCHARGE SUMMARY Page 1 of 1 X X DISCHARGE SUMMARY
--- NOTE | ~2016-05-15 | CR72 ---
[facility] A Service of [facility] & [facility] RADIOLOGY TEXT RESULTS PATIENT: DYANA PAYNE JR LOCATION: [facility] 303-01 : 50 UNIT #: [id number] AGE: [address]: Mateusz Kaur MD SEX: M ORDER DR: [id number] [facility] [address] [place], [place] [address] [id number] MR#: [id number] Acc #: [id number] NAME: DYANA PAYNE : 1950 SEX: M STUDY DATE/TIME: 05/15/2016 13:48 UNIT: [facility] ROOM: STUDY DESCRIPTION: CR Chest Single View Portable Ordering Physician: Ed Eric Palomo M.D. Primary Care Physician: Rashaun Lawler M.D. MEDICAL IMAGING REPORT This report is preliminary unless electronic signature is present EXAM Single view of the chest dated 05/15/2016 at 1348 hours. COMPARISON Single view chest dated 07/28/2015 at 1919 hours. HISTORY Mild congestion for 4 days. FINDINGS Single view of the chest was obtained. There is a pacemaker noted in the left upper lateral chest wall with stable cardiomegaly. Lungs appear to be relatively well aerated without patchy dense consolidation, pleural effusion, or pneumothorax. Bones do not demonstrate any significant acute abnormality. Dictated by... Zen Zazueta M.D. THIS IS AN ELECTRONICALLY VERIFIED REPORT Zen Zazueta M.D. at 05/17/2016 1:50 PM CPR/tmw TD: 05/15/2016 15:14 JOB #: [id number] MEDICAL IMAGING REPORT Page 1 of 1 COPY
--- NOTE | ~2016-05-15 | US146 ---
[facility] A Service of [facility] & [facility] RADIOLOGY TEXT RESULTS PATIENT: DYANA PAYNE JR LOCATION: [facility] - : [birth year] UNIT #: [id number] AGE: [address]: Mateusz Kaur MD SEX: M ORDER DR: [id number] [facility] [address] [place], [place] [address] [id number] I MR#: [id number] Acc #: [id number] NAME: DYANA PAYNE JR : 1950 SEX: M STUDY DATE/TIME: 05/18/2016 13:33 UNIT: A PCU ROOM: [facility] STUDY DESCRIPTION: US Vein Map Hemodial Access Attending Physician: Mateusz Kaur M.D. Ordering Physician: Tito Sheppard Jr., M.D. Primary Care Physician: Rashaun Lawler M.D. MEDICAL IMAGING REPORT This report is preliminary unless electronic signature is present EXAM Bilateral upper extremity venous mapping, 05/18/2016 REASON FOR EXAM Renal disease. FINDINGS The right and left cephalic and basilic veins were evaluated with B-mode imaging and color Doppler imaging. The right cephalic vein is thrombosed and noncompressible at the antecubital fossa and the left cephalic vein is thrombosed and noncompressible at the antecubital fossa. The remainder of the cephalic veins are widely patent. The right basilic vein is widely patent with the axilla to the wrist. The left basilic vein is evaluated and is noted to be widely patent from the proximal arm to the elbow but is not imaged in the forearm due to an indwelling IV. The right cephalic vein is 2.3 mm proximal arm, 2.9 mm mid arm, 2.2 mm distal arm, 10 mm at the elbow but thrombosed, 6.6 mm proximal forearm, 4.0 mm mid forearm, and 3.5 mm distal forearm. The right basilic vein is 12 mm proximal arm, 7.6 mm mid arm, 7.1 mm distal arm, 6.5 mm at the elbow, 2.1 mm proximal forearm, 4.1 mm mid forearm, and 3.9 mm distal forearm. Left cephalic vein is 4.2 mm proximal arm, 3.2 mm mid arm, 3.6 mm distal arm, 9.3 mm at the antecubital fossa but thrombosed, 3.1 mm proximal forearm, 4.3 mm mid forearm and 5.3 mm distal forearm. The left basilic vein 6.3 mm proximal arm, 5.3 mm mid arm, 4.1 mm distal arm, and 3.3 mm at the elbow. IMPRESSION 1. Positive superficial venous thrombosis of the right and left cephalic vein at the antecubital fossa. STS. [facility] A Service of [facility] RADIOLOGY TEXT RESULTS PATIENT: DYANA PAYNE JR LOCATION: [facility] 303-01 : 50 UNIT #: [id number] AGE: [address]: Mateusz Kaur MD SEX: M ORDER DR: 2. The right cephalic vein is marginal for use as a hemodialysis access from the proximal arm to the distal arm. 3. The left cephalic vein is adequate for use as a hemodialysis access from the proximal arm to the distal arm. 4. The right basilic vein is adequate for use as a hemodialysis access from the proximal arm to the elbow and the left basilic vein is adequate for use as a hemodialysis access from the proximal arm to the elbow. Dictated by... Sebastian Stewart M.D. THIS IS AN ELECTRONICALLY VERIFIED REPORT Sebastian Stewart M.D. at 05/19/2016 3:49 PM JEROME/david TD: 05/19/2016 03:52 JOB #: [id number] MEDICAL IMAGING REPORT Page 1 of 1 COPY
--- NOTE | ~2016-05-15 | US85 ---
[facility] A Service of [facility] RADIOLOGY TEXT RESULTS PATIENT: DYANA PAYNE JR LOCATION: [facility] : 50 UNIT #: [id number] AGE: [address]: Mateusz Kaur MD SEX: M ORDER DR: [id number] [facility] [address] [place], [place] [address] [id number] I MR#: [id number] Acc #: [id number] NAME: DYANA PAYNE : 1950 SEX: M STUDY DATE/TIME: 05/16/2016 10:07 UNIT: [address] ROOM: [facility] STUDY DESCRIPTION: LE Veins Unilat or Ltd Stdy Attending Physician: Mateusz Kaur M.D. Ordering Physician: Mateusz Kaur M.D. Primary Care Physician: Rashaun Lawler M.D. MEDICAL IMAGING REPORT This report is preliminary unless electronic signature is present EXAM Right lower extremity DVT study, 05/16/2016. COMPARISON None HISTORY Right lower extremity swelling for 5 months. History of left knee replacement in November 2015. Hypertension. TECHNIQUE Venous ultrasound examination of the right lower extremity was performed using grayscale, spectral Doppler and color flow Doppler imaging. FINDINGS The examination is negative. There is no evidence of right lower extremity deep venous thrombus from the groin to the lower calf. Visualized greater saphenous vein is also patent. IMPRESSION Negative examination. No evidence of right lower extremity deep venous thrombosis. Dictated by... Zen Zazueta M.D. THIS IS AN ELECTRONICALLY VERIFIED REPORT Zen Zazueta M.D. at 05/17/2016 2:14 PM CPR/js TD: 05/16/2016 13:49 [facility] A Service [facility] RADIOLOGY TEXT RESULTS PATIENT: DYANA PAYNE JR LOCATION: [facility] : 50 UNIT #: [id number] AGE: [address]: Mateusz Kaur MD SEX: M ORDER DR: JOB #: [id number] MEDICAL IMAGING REPORT Page 1 of 1 COPY
--- NOTE | ~2016-05-15 | CO ---
Unit #: [id number] #: [id number] Patient: DYANA FIELDS JR [id number] [address] [place], [place] [address] [id number] I MR#: [id number] NAME: DYANA FIELDS ROOM: 303 Age: 65 Sex: M Admission Date: 05/17/2016 : 1950 Attending Physician: Mateusz Kaur M.D. Primary Care Physician: Rashaun Lawler M.D. Consultation Date: 05/17/2016 CONSULTATION REPORT PRIMARY CARE PHYSICIAN Rashaun Lawler M.D. REASON FOR CONSULTATION Abdominal pain. HISTORY OF PRESENTING ILLNESS Mr. Fields is a 65-year-old gentleman, admitted on with complaints of upper abdominal pain and chest pain. He has been evaluated by Dr. Kaur and is better and also the pain has since resolved. The pain was somewhat worse after meals, but he denies any trouble swallowing. He says he has no appetite and has not been eating much. He did have some nausea and vomiting, but no hematemesis prior to admission and since admission, he has had no vomiting. There was no significant radiation of pain to the back. PAST MEDICAL HISTORY Significant for: 1. Evaluation for GI bleeding in 07/2015 where upper endoscopy showed mild gastritis and colonoscopy shows diverticulosis and small polyp. At that time, he was on Xarelto, which since then has been stopped. 2. Coronary artery disease, severe congestive heart failure, cardiomyopathy with ejection fraction of 20%. He is status post AICD placement. 3. Morbid obesity. 4. Type 2 diabetes mellitus. 5. Chronic kidney disease. He is status post cholecystectomy in 1986. MEDICATIONS Include Coreg, amiodarone, Cymbalta, furosemide, gabapentin, glipizide, Protonix, Onglyza, tramadol, metolazone, Flomax, ferrous sulfate, finasteride, and Coumadin. ALLERGIES To allopurinol, cephalexin, Actos. SOCIAL HISTORY Smoker in the past, quit long time ago. Denies alcohol or drug abuse. FAMILY HISTORY No history of colon cancer in the family. REVIEW OF SYSTEMS The patient had significant shortness of breath, which has resolved since Unit #: [id number] #: [id number] Patient: DYANA FIELDS JR treatment has been optimized while in the hospital. PHYSICAL EXAMINATION GENERAL: No acute distress. Denies any acute pain at this time. VITAL SIGNS: Stable. Temperature 97.9, pulse 79, blood pressure . HEENT: Pupils equal and reactive. Sclerae anicteric. Oral mucosa moist. NECK: No JVD. No lymphadenopathy. CHEST: Decreased breath sounds bilaterally at bases. CARDIOVASCULAR: Regular rate. No murmurs. ABDOMEN: The patient is morbidly obese. Deep palpation was not possible and ascites cannot be ruled out. No significant tenderness or acute distention was noted. EXTREMITIES: Edema bilaterally. No clubbing or cyanosis. NEUROLOGIC: Grossly intact with no focal sensory or motor deficits. DIAGNOSTIC STUDIES LABORATORY RESULTS: Hemoglobin of 12.7, platelet count of 126. Normal LFTs. Normal amylase. BUN and creatinine 89 and 1.7. Uric acid was high at 11.3. ASSESSMENT AND PLAN 1. The patient with significant upper abdominal and lower chest pain that seems to be much better with treatment and optimization of congestive heart failure. Treatment could be related to the congestive heart failure itself. He does have gastritis, which more than likely is related to medications. Recent endoscopy both upper and lower from 2016 were reviewed. He is status post cholecystectomy with no evidence of any LFT abnormality or pancreatic enzyme abnormality at this time. Given his multiple comorbidities as well as recent workup, I recommend symptomatic treatment with PPIs as well as optimizing the treatment of congestive heart failure. We will get an ultrasound of the abdomen to look for any liver disease versus ascites as he is very high risk of nonalcoholic steatohepatitis and cirrhosis as a result because of morbid obesity. 2. Chronic kidney disease, improving. 3. Coronary artery disease, chronic congestive heart failure, automatic implantable cardioverter-defibrillator placement. 4. Type 2 diabetes mellitus. Thank you, Dr. Kaur, for this interesting consult. We will follow along. Dictated by... Aiden Avelar/brandon TD: 05/17/2016 23:13 JOB #: [id number] Unit #: [id number] #: [id number] Patient: DYANA FIELDS JR CONSULTATION REPORT Page 1 of 1 X Reji Lozano MD CONSULTATION REPORT
[~2016-05-15 15:57] MED LIST: ALDACTONE25 MG PO; AMARYL PO; AMIODARONE HCL100 MG PO; AMIODARONE PO; AMLODIPINE BESY10 MG PO; ASPIRIN PO; ASPIRIN81 M2 PO; ASPIRIN81 MG PO; CARVEDILOL6.25 MG PO; CERTAGEN PO; CHLOR PO; CIPRO250 MG PO; CORDARONE200 M1 PO; COREG PO; COREG12.5 MG PO; COREG3.125 M1 PO; COREG6.25 MG PO; COUMADIN2.5 MG PO; COUMADIN5 MG PO; CYMBALTA PO; DIOVAN HCT 160-1 TAB PO; DULOXETINE HCL60 MG PO; EFFIENT10 MG PO; ELIQUIS2.5 MG PO; FARXIGA10 MG PO; FENOFIBRATE160 MG PO; FERRO-TIME325 MG PO; FINASTERIDE5 M1 PO; FLAGYL250 M1 PO; FLOMAX0.4 M1 PO; FUROSEMIDE40 MG PO; GABAPENTIN300 M2 PO; GABAPENTIN300 MG PO; GABAPENTIN600 MG PO; GLIPIZIDE10 MG PO; HYDRALAZINE HCL25 MG PO; HYTRIN10 MG PO; HYTRIN2 M1 PO; HYTRIN2 MG PO; IRON325 ( 651 PO; K-DUR20 ME2 PO; K-LOR HOSPITAL20 ME1 PO; K-LOR HOSPITAL20 MEQ PO; K-LOR20 MEQ PO; KOMBIGLYZE XR1 EAC2 PO; LANOXIN PO; LASIX PO; LASIX80 MG PO; LEVAQUIN PO; LIPITOR PO; LIPITOR40 MG PO; LISINOPRIL-HCTZ1 T16 PO; LISINOPRIL10 MG PO; LISINOPRIL2.5 MG PO; MAG-OX 400400 MG PO; MAG-OXIDE400 MG PO; MELATONIN3 M4 PO; MELATONIN300 MCG PO; MEN'S DAILY FOR1 CAP PO; METFORMIN PO; METOLAZONE5 MG PO; MULTI VITAMIN1 EACH PO; MULTI-DAY1 TAB PO; MULTI-VITAMIN1 EAC1 PO; NAPROXEN PO; NEURONTIN300 MG PO; NIACIN PO; NITROGLYCERIN0.4 MG SL; NITROGLYGERIN0.4 MG SL; NITROSTAT0.4 MG SL; OMEPRAZOLE20 M2 PO; ONE DAILY 50 PL1 TA1 PO; ONE DAILY MULTI1 TA3 PO; ONGLYZA2.5 MG PO; PAMINE PO; PERCOCET 10/3251 TAB PO; PERCOCET5/325 PO; PRAVACHOL20 MG PO; PRILOSEC20 M1 PO; PRILOSEC20 MG PO; PROSCAR5 MG PO; SULAR PO; SUPER B COMPLEX1 CAP PO; TERAZOSIN; TERAZOSIN HCL10 MG PO; TRAMADOL HCL50 M1 PO; TRAMADOL HCL50 M2 PO; ULTRAM PO; VIT C PO; XARELTO15 MG PO; ZESTORETIC 20/21 TAB PO; [UNRECOGNIZED DRUG - OTHER] PO
[2016-05-15 15:58] LABS: POC - CKMB 1.9 ng/mL (0.0-7.9); POC - TROPONIN <0.05 ng/mL (<=0.05)
[2016-05-15 16:11] LABS: BASOPHIL# 0.1 X10e3 (0-0.3); EOSINOPHIL# 0.3 X10e3 (0-0.7); EOSINOPHIL% 4.4 % (0.0-7.0); HEMATOCRIT 40.9 % (38.0-50.0); HEMOGLOBIN 12.9 gm/dL (13.0-16.0); LYMPHOCYTE# 0.4 X10e3 (1.0-3.5); LYMPHOCYTE% 5.2 % (17.0-45.0); MEAN CELL VOLUME 86.2 FL (83-96); MEAN CORPUSCULAR HEMOGLOBIN 27.2 PG (28-34); MEAN CORPUSCULAR HGB CONC 31.6 g/dL (30-36); MEAN PLATELET VOLUME 10.2 FL (6.5-11.5); MONOCYTE# 0.9 X10e3 (0-1.0); MONOCYTE% 11.8 % (3.0-12.0); NEUTROPHIL# 6.1 X10e3 (1.5-7.1); NEUTROPHIL% 77.6 % (40-75); PLATELET COUNT 114 X10e3 (140-420); RED BLOOD COUNT 4.75 X10e (3.90-5.60); WHITE BLOOD COUNT 7.8 X10e3 (4.0-10.5)
[2016-05-15 16:15] LABS: DIFF IND NO
[2016-05-15 16:18] LABS: INR 1.4; PARTIAL THROMBOPLASTIN TIME 30.9 SECONDS (23.5-31.3); PROTHROMBIN TIME (PATIENT) 14.7 SECONDS (9.6-11.5)
[2016-05-15 16:25] LABS: ALBUMIN SERUM 3.2 g/dL (3.5-5.0); BILIRUBIN, DIRECT 0.6 mg/dL (0.0-0.2); BILIRUBIN,INDIRECT 1.4 mg/dL (0.0-0.9); CALCIUM SERUM 9.3 mg/dL (8.4-10.2); CREATININE SERUM 2.1 mg/dL (0.6-1.4); GLOM FILT RATE Estimated 32.1 mL/min (>60); PROTEIN TOTAL SERUM 7.1 g/dL (6.0-8.3)
[2016-05-15 16:32] LABS: BUN/CREATININE RATIO 48.57
[2016-05-15] MEDS ORDERED: AMIODARONE HCL100 MG PO (17:16)
[2016-05-15] MEDS ORDERED: DULOXETINE HCL60 MG PO (17:17)
[2016-05-15] MEDS ORDERED: FUROSEMIDE80 MG PO (17:17)
[2016-05-15] MEDS ORDERED: COREG3.125 MG PO (17:17)
[2016-05-15] MEDS ORDERED: GRALISE600 MG PO (17:18)
[2016-05-15] MEDS ORDERED: OMEPRAZOLE20 M2 PO (17:18)
[2016-05-15] MEDS ORDERED: GLIPIZIDE10 MG PO (17:18)
[2016-05-15] MEDS ORDERED: ONGLYZA2.5 MG PO (17:19)
[2016-05-15] MEDS ORDERED: POTASSIUM CHLO20 ME1 PO (17:19)
[2016-05-15] MEDS ORDERED: TRAMADOL HCL50 M1 PO (17:20)
[2016-05-15] MEDS ORDERED: MULTI VITAMIN1 EACH PO (17:20)
[2016-05-15] MEDS ORDERED: METOLAZONE5 MG PO (17:29)
[2016-05-15] MEDS ORDERED: FLOMAX0.4 M1 PO (17:32)
[2016-05-15] MEDS ORDERED: FERRO-TIME325 MG PO (17:33)
[2016-05-15] MEDS ORDERED: FINASTERIDE5 M1 PO (17:34)
[2016-05-15] MEDS ORDERED: LIPITOR40 MG PO (17:34)
[2016-05-15] MEDS ORDERED: COUMADIN3 MG PO (17:35)
[2016-05-15 17:46] LABS: POC - CKMB 1.1 ng/mL (0.0-7.9); POC - TROPONIN <0.05 ng/mL (<=0.05)
[2016-05-16 00:30] LABS: CK TOTAL 18 IU/L (36-174)
[2016-05-16 06:08] LABS: HEMATOCRIT 38.9 % (38.0-50.0); HEMOGLOBIN 12.3 gm/dL (13.0-16.0); MEAN CELL VOLUME 85.8 FL (83-96); MEAN CORPUSCULAR HEMOGLOBIN 27.2 PG (28-34); MEAN CORPUSCULAR HGB CONC 31.7 g/dL (30-36); MEAN PLATELET VOLUME 9.8 FL (6.5-11.5); RED BLOOD COUNT 4.53 X10e (3.90-5.60); RED CELL DISTRIBUTION WIDTH 22.1 % (11.0-15.5); WHITE BLOOD COUNT 6.9 X10e3 (4.0-10.5)
[2016-05-16 06:50] LABS: CK TOTAL 17 IU/L (36-174)
[2016-05-16 07:56] LABS: CALCIUM SERUM 9.4 mg/dL (8.4-10.2); POTASSIUM 3.9 mmol/L (3.5-5.1)
[2016-05-16 12:21] LABS: CK TOTAL 18 IU/L (36-174)
[2016-05-16 13:31] LABS: HEMATOCRIT 40.4 % (38.0-50.0); HEMOGLOBIN 12.8 gm/dL (13.0-16.0); MEAN CELL VOLUME 85.9 FL (83-96); MEAN CORPUSCULAR HEMOGLOBIN 27.3 PG (28-34); MEAN CORPUSCULAR HGB CONC 31.7 g/dL (30-36); MEAN PLATELET VOLUME 10.3 FL (6.5-11.5); RED BLOOD COUNT 4.7 X10e (3.90-5.60); RED CELL DISTRIBUTION WIDTH 22.2 % (11.0-15.5); RETICULOCYTE 1.6 % (0.5-2.8)
[2016-05-16 16:43] LABS: URINE APPEARANCE CLEAR; URINE BILIRUBIN NEG (NEG); URINE BLOOD NEG (NEG); URINE COLOR YELLOW; URINE GLUCOSE NEG (NEG); URINE KETONE NEG (NEG); URINE LEUKOCYTE ESTERASE NEG (NEG); URINE NITRATE NEG (NEG); URINE PROTEIN NEG (NEG); URINE SPECIFIC GRAVITY 1.009 (1.003-1.035); URINE UROBILINOGEN 0.2 MG/DL (NEG)
[2016-05-17 06:30] LABS: HEMATOCRIT 39.7 % (38.0-50.0); HEMOGLOBIN 12.7 gm/dL (13.0-16.0); MEAN CELL VOLUME 85.7 FL (83-96); MEAN CORPUSCULAR HEMOGLOBIN 27.3 PG (28-34); MEAN CORPUSCULAR HGB CONC 31.9 g/dL (30-36); MEAN PLATELET VOLUME 10.8 FL (6.5-11.5); RED BLOOD COUNT 4.63 X10e (3.90-5.60); RED CELL DISTRIBUTION WIDTH 21.8 % (11.0-15.5); RETICULOCYTE 1.4 % (0.5-2.8); WHITE BLOOD COUNT 10.2 X10e3 (4.0-10.5)
[2016-05-17 07:22] LABS: BUN/CREATININE RATIO 52.35; CALCIUM SERUM 9.2 mg/dL (8.4-10.2); CREATININE SERUM 1.7 mg/dL (0.6-1.4); GLOM FILT RATE Estimated 41.4 mL/min (>60); URIC ACID 11.3 mg/dL (2.6-7.2)
[2016-05-17 07:24] LABS: POTASSIUM 2.7 mmol/L (3.5-5.1)
[2016-05-17 20:07] LABS: MAGNESIUM 1.3 mg/dL (1.6-3.0)
[2016-05-18 06:20] LABS: HEMATOCRIT 38.9 % (38.0-50.0); HEMOGLOBIN 12.3 gm/dL (13.0-16.0); MEAN CORPUSCULAR HEMOGLOBIN 27.1 PG (28-34); MEAN CORPUSCULAR HGB CONC 31.5 g/dL (30-36); MEAN PLATELET VOLUME 10.1 FL (6.5-11.5); RED BLOOD COUNT 4.53 X10e (3.90-5.60); RED CELL DISTRIBUTION WIDTH 22.4 % (11.0-15.5); WHITE BLOOD COUNT 11.6 X10e3 (4.0-10.5)
[2016-05-18 07:13] LABS: ALBUMIN SERUM 2.7 g/dL (3.5-5.0); BILIRUBIN,TOTAL 2.5 mg/dL (0.2-2.0); BUN/CREATININE RATIO 41.73; CALCIUM SERUM 9.1 mg/dL (8.4-10.2); CREATININE SERUM 2.3 mg/dL (0.6-1.4); GLOM FILT RATE Estimated 28.7 mL/min (>60); MAGNESIUM 1.6 mg/dL (1.6-3.0); POTASSIUM 4.9 mmol/L (3.5-5.1); PROTEIN TOTAL SERUM 6.2 g/dL (6.0-8.3)
[2016-05-19 09:28] LABS: HEMOGLOBIN 12.1 gm/dL (13.0-16.0); MEAN CELL VOLUME 86.2 FL (83-96); MEAN CORPUSCULAR HEMOGLOBIN 27.5 PG (28-34); MEAN CORPUSCULAR HGB CONC 31.9 g/dL (30-36); MEAN PLATELET VOLUME 10.1 FL (6.5-11.5); RED BLOOD COUNT 4.4 X10e (3.90-5.60); RED CELL DISTRIBUTION WIDTH 22.3 % (11.0-15.5); WHITE BLOOD COUNT 8.9 X10e3 (4.0-10.5)
[2016-05-19 10:40] LABS: ALBUMIN SERUM 2.6 g/dL (3.5-5.0); BILIRUBIN,TOTAL 2.1 mg/dL (0.2-2.0); CALCIUM SERUM 8.9 mg/dL (8.4-10.2); CREATININE SERUM 2.6 mg/dL (0.6-1.4); GLOM FILT RATE Estimated 24.8 mL/min (>60); MAGNESIUM 2.2 mg/dL (1.6-3.0); POTASSIUM 5.3 mmol/L (3.5-5.1); PROTEIN TOTAL SERUM 6.2 g/dL (6.0-8.3)
[2016-05-19 10:42] LABS: BUN/CREATININE RATIO 41.92
[2016-05-20 05:32] LABS: HEMATOCRIT 36.2 % (38.0-50.0); HEMOGLOBIN 11.8 gm/dL (13.0-16.0); MEAN CELL VOLUME 84.9 FL (83-96); MEAN CORPUSCULAR HEMOGLOBIN 27.6 PG (28-34); MEAN CORPUSCULAR HGB CONC 32.5 g/dL (30-36); MEAN PLATELET VOLUME 9.8 FL (6.5-11.5); RED BLOOD COUNT 4.27 X10e (3.90-5.60); RED CELL DISTRIBUTION WIDTH 21.8 % (11.0-15.5); WHITE BLOOD COUNT 7.5 X10e3 (4.0-10.5)
[2016-05-20 06:48] LABS: ALBUMIN SERUM 2.6 g/dL (3.5-5.0); BILIRUBIN,TOTAL 1.8 mg/dL (0.2-2.0); CREATININE SERUM 2.6 mg/dL (0.6-1.4); GLOM FILT RATE Estimated 24.8 mL/min (>60); POTASSIUM 4.3 mmol/L (3.5-5.1); PROTEIN TOTAL SERUM 6.1 g/dL (6.0-8.3)
[2016-05-21 05:51] LABS: HEMATOCRIT 38.5 % (38.0-50.0); HEMOGLOBIN 12.2 gm/dL (13.0-16.0); MEAN CELL VOLUME 85.5 FL (83-96); MEAN CORPUSCULAR HGB CONC 31.6 g/dL (30-36); MEAN PLATELET VOLUME 9.9 FL (6.5-11.5); RED BLOOD COUNT 4.5 X10e (3.90-5.60); RED CELL DISTRIBUTION WIDTH 21.2 % (11.0-15.5); WHITE BLOOD COUNT 6.7 X10e3 (4.0-10.5)
[2016-05-21 06:25] LABS: INR 1.2; PROTHROMBIN TIME (PATIENT) 13.1 SECONDS (9.6-11.5)
[2016-05-21 06:49] LABS: ALBUMIN SERUM 2.7 g/dL (3.5-5.0); BILIRUBIN,TOTAL 1.8 mg/dL (0.2-2.0); BUN/CREATININE RATIO 47.6; CALCIUM SERUM 8.8 mg/dL (8.4-10.2); CREATININE SERUM 2.5 mg/dL (0.6-1.4); POTASSIUM 3.4 mmol/L (3.5-5.1); PROTEIN TOTAL SERUM 6.4 g/dL (6.0-8.3)
[2016-05-22 02:31] LABS: HEP B SURFACE AG Nonreactive (Nonreactive)
[2016-05-23 05:59] LABS: BASOPHIL# 0.1 X10e3 (0-0.3); BASOPHIL% 0.8 % (0-2.5); EOSINOPHIL# 0.4 X10e3 (0-0.7); EOSINOPHIL% 3.8 % (0.0-7.0); HEMATOCRIT 36.6 % (38.0-50.0); HEMOGLOBIN 11.6 gm/dL (13.0-16.0); LYMPHOCYTE# 0.5 X10e3 (1.0-3.5); MEAN CELL VOLUME 86.6 FL (83-96); MEAN CORPUSCULAR HEMOGLOBIN 27.5 PG (28-34); MEAN CORPUSCULAR HGB CONC 31.7 g/dL (30-36); MEAN PLATELET VOLUME 9.7 FL (6.5-11.5); MONOCYTE# 1.6 X10e3 (0-1.0); MONOCYTE% 14.5 % (3.0-12.0); NEUTROPHIL# 8.2 X10e3 (1.5-7.1); NEUTROPHIL% 75.9 % (40-75); PLATELET COUNT 124 X10e3 (140-420); RED BLOOD COUNT 4.23 X10e (3.90-5.60); RED CELL DISTRIBUTION WIDTH 21.6 % (11.0-15.5); WHITE BLOOD COUNT 10.8 X10e3 (4.0-10.5)
[2016-05-23 06:08] LABS: DIFF IND NO
[2016-05-23 06:49] LABS: BUN/CREATININE RATIO 35.92; CALCIUM SERUM 8.4 mg/dL (8.4-10.2); CREATININE SERUM 2.7 mg/dL (0.6-1.4); GLOM FILT RATE Estimated 23.7 mL/min (>60); POTASSIUM 4.3 mmol/L (3.5-5.1)
[2016-05-24 06:29] LABS: HEMATOCRIT 34.5 % (38.0-50.0); HEMOGLOBIN 10.8 gm/dL (13.0-16.0); MEAN CELL VOLUME 85.9 FL (83-96); MEAN CORPUSCULAR HGB CONC 31.4 g/dL (30-36); MEAN PLATELET VOLUME 9.8 FL (6.5-11.5); RED BLOOD COUNT 4.01 X10e (3.90-5.60); RED CELL DISTRIBUTION WIDTH 21.6 % (11.0-15.5); WHITE BLOOD COUNT 11.4 X10e3 (4.0-10.5)
[2016-05-24 07:04] LABS: BUN/CREATININE RATIO 25.41; CALCIUM SERUM 7.9 mg/dL (8.4-10.2); CREATININE SERUM 2.4 mg/dL (0.6-1.4); GLOM FILT RATE Estimated 27.3 mL/min (>60); PHOSPHOROUS 3.1 mg/dL (2.5-4.6); POTASSIUM 3.7 mmol/L (3.5-5.1)
[2016-05-25 06:13] LABS: INR 1.1
[2016-05-25 07:30] LABS: HA AB IGM (HEPPAN) Nonreactive (()); HB CORE AB IGM (HEPPAN) Nonreactive (Nonreactive); HB S AG (HEPPAN) Nonreactive (Nonreactive); HEP C AB (HEPPAN) Nonreactive (Nonreactive); HEP C AB SIGNAL TO CUTOFF 0.05 ratio (<1.00); HEPATITIS B SURFACE ANTIBODY <5 mIU/mL (>=10)
== END 2016-05-26 10:52 | DRG 264 ==
LOC: CED 15:57 → CEDOF 18:10 → C3A PCU 05-17 17:30
PROVIDERS: Emergency Medicine; Internal Medicine; Internal Medicine Cardiovascular Disease; Internal Medicine Nephrology; Surgery; Surgery Vascular Surgery
PROC: 0JH63XZ Insertion of Tunneled Vascular Access Device into Chest Subcutaneous Tissue and Fascia, Percutaneous Approach (ICD-10-PCS; 2016-05-21)
PROC: 02HV33Z Insertion of Infusion Device into Superior Vena Cava, Percutaneous Approach (ICD-10-PCS; 2016-05-21)
PROC: B5181ZA Fluoroscopy of Superior Vena Cava using Low Osmolar Contrast, Guidance (ICD-10-PCS; 2016-05-21)
PROC: 031709D Bypass Right Brachial Artery to Upper Arm Vein with Autologous Venous Tissue, Open Approach (ICD-10-PCS; principal; 2016-05-21 10:00)
PROC: 5A1D00Z (ICD-10-PCS; 2016-05-21 10:00)
DX: I13.0 Hypertensive heart and chronic kidney disease with heart failure and stage 1 through stage 4 chronic kidney disease, or unspecified chronic kidney disease (principal); N18.6 End stage renal disease; K75.81 Nonalcoholic steatohepatitis (NASH); I50.23 Acute on chronic systolic (congestive) heart failure; I08.1 Rheumatic disorders of both mitral and tricuspid valves; I48.0 Paroxysmal atrial fibrillation; E66.01 Morbid (severe) obesity due to excess calories; Z87.891 Personal history of nicotine dependence; Z95.5 Presence of coronary angioplasty implant and graft; Z86.73 Personal history of transient ischemic attack (TIA), and cerebral infarction without residual deficits; I25.10 Atherosclerotic heart disease of native coronary artery without angina pectoris; Z95.810 Presence of automatic (implantable) cardiac defibrillator; E78.5 Hyperlipidemia, unspecified; E11.9 Type 2 diabetes mellitus without complications; Z79.01 Long term (current) use of anticoagulants; I25.5 Ischemic cardiomyopathy; M19.90 Unspecified osteoarthritis, unspecified site; N40.0 Benign prostatic hyperplasia without lower urinary tract symptoms; K21.9 Gastro-esophageal reflux disease without esophagitis; Z86.14 Personal history of Methicillin resistant Staphylococcus aureus infection; Z90.49 Acquired absence of other specified parts of digestive tract; K29.70 Gastritis, unspecified, without bleeding; Z99.2 Dependence on renal dialysis
CPT/HCPCS: 36415; 71010; 71020; 76000; 76700; 77001; 78452; 80048; 80053; 80061; 80074; 80076; 81003; 82550; 82553; 82947; 83615; 83735; 83880; 84100; 84132; 84443; 84484; 84550; 85025; 85027; 85044; 85610; 85730; 86706; 86850; 86900; 86901; 87086; 87340; 93005; 93017; 93971; 97110; 97162; 97164; 97166; 97530; 97535; 99285; A9500; C1752; C1894; C9113; G0365; G8978-GP; G8979-GP; G8987-GO; G8988-GO; J1250; J1644; J1650; J1815; J2250; J2270; J2370; J2405; J2720; J2785; J3010; J3370; J3475

== ENCOUNTER → 2016-09-29 | Outpatient (CLI) | payer MEDICARE, OTHER ==
[~2016-09-29] MED LIST changes: +COREG3.125 MG PO; +COUMADIN3 MG PO; +FUROSEMIDE80 MG PO; +GRALISE600 MG PO; +POTASSIUM CHLO20 ME1 PO
--- NOTE | ~2016-09-29 | CT57 ---
[facility] A Service of [facility] RADIOLOGY TEXT RESULTS PATIENT: DYANA PAYNE JR LOCATION: [facility] : 50 UNIT #: [id number] AGE: [address]: Roge Ortiz MD SEX: M ORDER DR: [id number] [facility] [address] [place], [place] [address] [id number] O MR#: [id number] Acc #: [id number] NAME: DYANA PAYNE : 1950 SEX: M STUDY DATE/TIME: 09/29/2016 9:22 UNIT: [facility] ROOM: STUDY DESCRIPTION: CT Chest Wo Cont Attending Physician: Roge Ortiz M.D. Referring Physician: Roge Ortiz M.D. Ordering Physician: Roge Ortiz M.D. Primary Care Physician: Rashaun Lawler M.D. MEDICAL IMAGING REPORT This report is preliminary unless electronic signature is present EXAM CT chest without contrast INDICATIONS Malignancy, not specified. Vertebral body lesions. Observation for metastatic disease. TECHNIQUE CT of the chest was performed without contrast. Coronal and sagittal reformatted images were obtained. This CT exam was performed with one or more of the following radiation dose reduction techniques: automatic exposure control, adjustment of mA and/or kV according to patient size, and iterative reconstruction. COMPARISON PET/CT from 03/23/2016. FINDINGS There are a few small bilateral pulmonary nodules within the lower lobes. These are unchanged in size. Index nodule within the left lower lobe measures 8 mm, stable. No new nodules. No lymphadenopathy or pleural effusion. Patient has a tunneled dialysis catheter. ICD. Limited imaging of the upper abdomen shows a stable cyst in the liver. Cholecystectomy. Tiny hiatal hernia. Bone windows show multiple lytic lesions in the thoracic spine. Please refer to separately dictated CT scan of the thoracic spine for complete details of these findings. IMPRESSION 1. Stable bilateral lower lobe subcentimeter pulmonary nodules. No new nodules. 2. Multiple lytic lesions in the thoracic spine. Please refer to separately dictated CT scan of thoracic spine for complete details of [facility] A Service of [facility] RADIOLOGY TEXT RESULTS PATIENT: DYANA PAYNE JR LOCATION: [facility] : 50 UNIT #: [id number] AGE: [address]: Roge Ortiz MD SEX: M ORDER DR: these findings. Dictated by... Derrek Pruitt M.D. THIS IS AN ELECTRONICALLY VERIFIED REPORT Derrek Pruitt M.D. at 09/29/2016 5:29 PM Augusto TD: 09/29/2016 13:40 JOB #: [id number] MEDICAL IMAGING REPORT Page 1 of 1 COPY
--- NOTE | ~2016-09-29 | CT122 ---
[facility] A Service of [facility] & [facility] RADIOLOGY TEXT RESULTS PATIENT: DYANA PAYNE JR LOCATION: [facility] : 50 UNIT #: [id number] AGE: [address]: Roge Ortiz MD SEX: M ORDER DR: [id number] [facility] [address] [place], [place] [address] [id number] O MR#: [id number] Acc #: [id number] NAME: DYANA PAYNE JR : 1950 SEX: M STUDY DATE/TIME: 09/29/2016 9:22 UNIT: [facility] ROOM: STUDY DESCRIPTION: CT Thoracic Spine Wo Cont Attending Physician: Roge Ortiz M.D. Referring Physician: Roge Ortiz M.D. Ordering Physician: Roge Ortiz M.D. Primary Care Physician: Rashaun Lawler M.D. MEDICAL IMAGING REPORT This report is preliminary unless electronic signature is present EXAM Thoracic spine CT, no contrast, 09/29/2016 HISTORY No new symptoms. Routine followup for lytic thoracic spine lesion identified prior CT from [facility] on 03/04/2016. TECHNIQUE Axial unenhanced thoracic spine CT with multiplanar reformats. This CT exam was performed with one or more of the following radiation dose reduction techniques: automatic exposure control, adjustment of mA and/or kV according to patient size, and iterative reconstruction. COMPARISON STUDIES Outside CT from [facility] on 03/04/2016. FINDINGS Well-circumscribed lucency replacing most of the vertebral body at T7 is re-demonstrated, though there is a new, slight upper endplate compression deformity with about 10% height loss. Acuity is uncertain but it is clearly new since the outside CT dated March 04. No other pathologic fracture is seen. More ill-defined lucency at T11 and T12 is unchanged and a well-circumscribed lucency in the left T3 posterior elements, about 8 mm in size. This is also unchanged since the prior CT. No new lucency is identified. There is no new abnormality. IMPRESSION 1. Stable well-circumscribed somewhat expansile appearing lucency in the T7 vertebral body, unchanged since 03/04/2016 overall, though there is new height loss at T7, about 5-10% in the upper endplates, STS. [facility] A Service of [facility] RADIOLOGY TEXT RESULTS PATIENT: DYANA PAYNE JR LOCATION: [facility] : 50 UNIT #: [id number] AGE: [address]: Roge Ortiz MD SEX: M ORDER DR: suggesting interval pathology fracture, though whether this is acute or chronic is unclear. 2. More subtle ill-defined lucency is at T11 and T12, stable. Well-circumscribed lucency in the T3 left posterior elements, about 8 mm in size, is stable. As previously suggested, certainly, myeloma/plasmacytoma is a possibility. It is also possible that the lesion at T7 could represent a giant cell tumor or other lesion. If there are older images from some other outside facility, that might be helpful in assessing a possible longer-term stability. Comparison might be helpful. Dictated by... Abhinav Veloz M.D. THIS IS AN ELECTRONICALLY VERIFIED REPORT Abhinav Veloz M.D. at 09/30/2016 4:59 PM TEV/pcl TD: 09/29/2016 21:58 JOB #: [id number] MEDICAL IMAGING REPORT Page 1 of 1 COPY
[2016-09-29 09:12] LABS: BASOPHIL% 0.2 % (0-2.5); DIFF IND YES; EOSINOPHIL# 0.4 X10e3 (0-0.7); EOSINOPHIL% 4.2 % (0.0-7.0); HEMATOCRIT 36.9 % (38.0-50.0); HEMOGLOBIN 11.9 gm/dL (13.0-16.0); LYMPHOCYTE# 0.7 X10e3 (1.0-3.5); LYMPHOCYTE% 6.4 % (17.0-45.0); MEAN CELL VOLUME 90.5 FL (83-96); MEAN CORPUSCULAR HEMOGLOBIN 29.2 PG (28-34); MEAN CORPUSCULAR HGB CONC 32.2 g/dL (30-36); MEAN PLATELET VOLUME 7.7 FL (6.5-11.5); MONOCYTE# 0.8 X10e3 (0-1.0); MONOCYTE% 7.7 % (3.0-12.0); NEUTROPHIL# 8.4 X10e3 (1.5-7.1); NEUTROPHIL% 81.5 % (40-75); PLATELET COUNT 129 X10e3 (140-420); RED BLOOD COUNT 4.08 X10e (3.90-5.60); RED CELL DISTRIBUTION WIDTH 23.3 % (11.0-15.5); WHITE BLOOD COUNT 10.3 X10e3 (4.0-10.5)
[2016-09-29 09:59] LABS: ELLIPTOCYTES PRESENT; PLATELET ESTIMATE DECREASED (NORMAL)
[2016-09-29 10:01] LABS: ANISOCYTOSIS MOD
[2016-09-29 10:08] LABS: ALBUMIN SERUM 3.8 g/dL (3.5-5.0); BILIRUBIN,TOTAL 0.7 mg/dL (0.2-2.0); BUN/CREATININE RATIO 22.08; CALCIUM SERUM 8.9 mg/dL (8.4-10.2); CREATININE SERUM 2.4 mg/dL (0.6-1.4); GLOM FILT RATE Estimated 27.1 mL/min (>60); POTASSIUM 3.8 mmol/L (3.5-5.1); PROTEIN TOTAL SERUM 6.6 g/dL (6.0-8.3)
[2016-10-03 04:53] LABS: SPE A1GLOB (PNL) 0.3 g/dL (0.2-0.3); SPE A2GLOB (PNL) 0.6 g/dL (0.5-0.9); SPE ALB (PNL) 3.9 g/dL (3.8-4.8); SPE BETA 1 GLOBULIN 0.4 g/dL (0.4-0.6); SPE BETA 2 GLOBULIN 0.3 g/dL (0.2-0.5); SPE GAMMA (PNL) 1.1 g/dL (0.8-1.7); SPETP (PNL) 6.6 g/dL (6.1-8.1)
== END | disposition home or self-care (01) ==
LOC: CCAT 09-28 09:00
PROVIDERS: Internal Medicine Hematology & Oncology
DX: M89.9 Disorder of bone, unspecified (principal); R91.8 Other nonspecific abnormal finding of lung field
CPT/HCPCS: 36415; 71250; 72128; 80053; 83883; 84165; 85025; 86334